=== PATIENT | male | born 1970 | race African-American/Black ===

== ENCOUNTER 2019-04-18 23:07 | Emergency (ER) | payer OTHER ==
[~2019-04-18] VITALS: Ht 170.2 cm; Wt 88.6 kg
[~2019-04-18 23:07] MED LIST: LEVAHFA IH
[2019-04-18] MEDS ORDERED: HYDR25TA PO (23:31)
[2019-04-18 23:58] VITALS: BP 137/91
[2019-04-19] MEDS ORDERED: ACETAMINOPHEN 500 MG TABLET PO ONE (00:15)
[2019-04-19 00:18] LABS: GLUCOSE,POINT OF CARE 108 MG/DL (70-110)
== END 2019-04-19 00:40 | disposition home or self-care (01) ==
LOC: EMS 23:08
DX: I10 Essential (primary) hypertension (principal)